=== PATIENT | female | born 1935 ===

== ENCOUNTER 2019-03-25 12:49 | Outpatient (CLI) | payer OTHER ==
[~2019-03-25 12:49] MED LIST: ADVAIR 2501 DISK W/1 IH; ANTARA43 MG PO
== END 2019-03-25 12:57 | disposition home or self-care (01) ==
LOC: RAD 12:49
DX: M25.561 Pain in right knee (principal); M25.562 Pain in left knee

== ENCOUNTER 2020-10-03 18:33 | Inpatient (IN) | payer OTHER ==
[~2020-10-03] VITALS: Ht 160 cm
[2020-10-03] MEDS ORDERED: VENTOLIN HFA18 GM (19:17)
== END 2020-10-11 07:39 | disposition home or self-care (01) | DRG 177 ==
LOC: ER 18:33 → SURG 10-04 12:04 → MEDJ 10-04 12:04
PROVIDERS: ADMIT Internal Medicine; ATTEND Internal Medicine
PROC: 8E0ZXY6 Isolation (ICD-10-PCS; principal; 2020-10-04)
PROC: XW033E5 Introduction of Remdesivir Anti-infective into Peripheral Vein, Percutaneous Approach, New Technology Group 5 (ICD-10-PCS; 2020-10-04)
PROC: 4A12X4Z Monitoring of Cardiac Electrical Activity, External Approach (ICD-10-PCS; 2020-10-04)
PROC: 3E0F7SF Introduction of Other Gas into Respiratory Tract, Via Natural or Artificial Opening (ICD-10-PCS; 2020-10-04)
PROC: 3E0F7GC Introduction of Other Therapeutic Substance into Respiratory Tract, Via Natural or Artificial Opening (ICD-10-PCS; 2020-10-04)
DX: U07.1 COVID-19 (principal); J12.82 Pneumonia due to coronavirus disease 2019; J45.901 Unspecified asthma with (acute) exacerbation; E87.1 Hypo-osmolality and hyponatremia; N39.0 Urinary tract infection, site not specified; Z20.822 Contact with and (suspected) exposure to COVID-19; R09.02 Hypoxemia; E86.0 Dehydration

== ENCOUNTER 2024-04-08 12:07 | Outpatient (CLI) | payer OTHER ==
[~2024-04-08 12:07] MED LIST changes: +VENTOLIN HFA18 GM
== END 2024-04-08 12:14 | disposition home or self-care (01) ==
LOC: RAD 12:07
PROVIDERS: ATTEND Internal Medicine
DX: M06.9 Rheumatoid arthritis, unspecified (principal); M79.673 Pain in unspecified foot; M19.90 Unspecified osteoarthritis, unspecified site